=== PATIENT | male | born 1955 | race African-American/Black ===

== ENCOUNTER 2019-12-09 09:00 | Emergency (ER) | payer MEDICARE, OTHER ==
[2019-12-09] MEDS ORDERED: diphenhydrAMINE 50 MG/ML VIAL ONE (09:39)
[2019-12-09] MEDS ORDERED: methylPREDNISolone Sod Succ/PF 125 MG/2 ML VIAL ONE (09:39)
[2019-12-09] MEDS ORDERED: Enoxaparin Sodium 40 MG/0.4 ML SYRINGE ONE (09:40)
[2019-12-09] MEDS ORDERED: Famotidine/PF 20 mg/2ml Vial ONE (09:40)
== END 2019-12-09 10:32 | disposition home or self-care (01) ==
LOC: ERS 09:00
DX: L25.5 Unspecified contact dermatitis due to plants, except food (principal); K13.70 Unspecified lesions of oral mucosa
CPT/HCPCS: 96374; 96375; J1200; J1650; J2930; S0028